=== PATIENT | male | born 1935 | race Caucasian/White ===

== ENCOUNTER → 2019-03-18 | Outpatient (CLI) | payer MEDICARE ==
--- NOTE | 2019-03-18 15:33 | Diagnostic Imaging Report ---
INDICATION: Bladder carcinoma, initial staging. TECHNIQUE: Serum blood glucose level at the time of injection was 96 mg/dL. The patient was administered 14.3 mCi [id number] intravenously in the left arm and PET imaging was performed from the top of the skull to mid thighs. Noncontrast CT was also performed for attenuation correction and anatomic correlation. COMPARISON: No prior imaging is available for comparison. FINDINGS: There is symmetric activity throughout the brain. Normal physiologic activity within the soft tissues of the neck are identified. There is intense hypermetabolism identified in the right humeral head, SUVmax approximately 8.5. This correlates to a somewhat expansile lytic lesion at this location on the noncontrast CT. No hypermetabolic mediastinal or hilar lymphadenopathy is seen. Pulmonary parenchyma is unremarkable. Imaging through the abdomen and pelvis shows physiologic activity within the GI and tracts. Significant hydroureteronephrosis on the right. Dilated right ureter is traced to the bladder where it appears likely obstructed due to the known bladder mass. No hypermetabolic lymphadenopathy in the abdomen or pelvis is seen. There are several areas of hypermetabolism within the bony structures in the pelvis. Hypermetabolism involving the proximal left femur as well as the left ischium and inferior pubic ramus is seen as well as the right inferior pubic ramus. This corresponds to sclerotic lesions on the noncontrast CT. There is also intense uptake involving the posterior elements at the T12 level involving the left laminae and spinous process where there are lytic lesions. There is a sclerotic lesion within the vertebral body of T11 which also shows uptake. No other suspicious bony uptake is detected. IMPRESSION: 1. Abnormal hypermetabolism involving multiple osseous lesions including the right humeral head, T11 vertebral body, T12 posterior elements, as well as the pelvic rami consistent with osseous metastatic disease. There is also significant right-sided hydroureteronephrosis, likely owing to distal obstruction by known bladder mass. No hypermetabolic thoracic, abdominal or pelvic lymphadenopathy is detected. Dictated by: Dictated on workstation # [id number]
== END ==
LOC: RAD 11:25
PROVIDERS: ATTEND Internal Medicine Hematology & Oncology
DX: M89.9 Disorder of bone, unspecified (principal); N13.30 Unspecified hydronephrosis; C67.9 Malignant neoplasm of bladder, unspecified